=== PATIENT | female | born 1980 | race Caucasian/White ===

== ENCOUNTER 2023-10-15 06:40 | Emergency (ER) | payer SELFPAY ==
[2023-10-15] MEDS ORDERED: Clindamycin HCl 150 MG Cap PO ONE (07:00)
[2023-10-15] MEDS ORDERED: Ketorolac 60 MG/2 ML SDV IM ONE (07:01)
== END 2023-10-15 07:54 | disposition home or self-care (01) ==
LOC: JD.ED 06:40
DX: K04.7 Periapical abscess without sinus (principal); F17.210 Nicotine dependence, cigarettes, uncomplicated; Z88.0 Allergy status to penicillin
CPT/HCPCS: 96372; 99282; A9270; J1885; 99283